=== PATIENT | male | born 1955 | race Caucasian/White ===

== ENCOUNTER 2018-04-07 09:19 | Day surgery (SDC) | payer MEDICARE, MEDICAID ==
[2018-04-06 16:18] VITALS: BMI 23.6
[2018-04-07] MEDS ORDERED: PROPOFOL 200 MG/20 ML VIAL ONE (15:09)
--- NOTE | 2018-04-08 10:38 | OP ---
DATE OF PROCEDURE: 04/07/2018 PREPROCEDURE DIAGNOSES: 1. Limited expressive cognitive dysfunction. The patient lives in assisted living facility in [facility] [place]. 2. Dysphagia, likely oropharyngeal. 3. Prior history of colon polyps. POSTPROCEDURE DIAGNOSES: 1. Esophagogastroduodenoscopy, normal. 2. Colonoscopy notable for a 3-mm cecal polyp, removed by snare polypectomy. RECOMMENDATIONS: 1. Await histopathology. 2. With regard to the patient's dysphagia, no findings to explain this. I suspect this is related t o neurologic function with further recommendations from Speech Pathology. It does not seem he has morley d any evidence of aspiration or pneumonia recently. 3. With regard to small polyp, we will await for pathology. I think if his swallowing function dete riorates further, I would really stop any further colorectal cancer screening with colonoscopy as it could be high risk for aspiration, which could be life threatening if he would aspirate (01:51) preparation for colonoscopy. It may be reasonable at this point in time to consider further colonos copy if he developed symptoms or anemia. ANESTHESIA: TIVA. PROCEDURE IN DETAIL: After the patient was explained of the risks, benefits, and possible complicati ons of endoscopy including perforation, reactions to medication, and aspiration informed consent was obtained. the patient was brought to the endoscopy suite where he was sedated in gradual fashi on. Once he was comfortable, a bite block was placed in the incisor orifice. The endoscope was adva nced through the esophagus, stomach, and the second and third portion of duodenum and slowly removed. There was good visualization of the mucosa. There were no masses, lesions, or arteriovenous malfor mations identified. The esophagus was normal. The stomach was normal. The duodenum was normal. Th ere were no reasons for dysphagia identified in this study. Retroflexed views in the stomach were no rmal. The scope was then removed. The patient was turned in the room. Rectal examination was perfo rmed. The endoscope was advanced into the anal canal through the colon to the cecum, which was ident ified by the ileocecal valve and appendiceal orifice. There was a 3-mm polyp in the cecum, which was removed by snare polypectomy. No other polyps or lesions were seen. The remainder of the colon was evaluated as best we could. The prep was somewhat limited. We did irrigate with about a liter of f luid.
== END 2018-04-07 13:15 ==
LOC: SDC 09:19
PROVIDERS: ATTEND Internal Medicine Gastroenterology
PROC: 0DJ08ZZ Inspection of Upper Intestinal Tract, Via Natural or Artificial Opening Endoscopic (ICD-10-PCS; principal; 2018-04-07)
PROC: 0DBH8ZX Excision of Cecum, Via Natural or Artificial Opening Endoscopic, Diagnostic (ICD-10-PCS; 2018-04-07)
DX: D12.0 Benign neoplasm of cecum (principal); K21.9 Gastro-esophageal reflux disease without esophagitis; M81.0 Age-related osteoporosis without current pathological fracture; K59.00 Constipation, unspecified; Z86.010 Personal history of colon polyps; Z79.51 Long term (current) use of inhaled steroids; Z79.899 Other long term (current) drug therapy; Z88.1 Allergy status to other antibiotic agents; Z91.018 Allergy to other foods; Z88.8 Allergy status to other drugs, medicaments and biological substances
CPT/HCPCS: 88305; J2704